=== PATIENT | female | born 1990 | race Caucasian/White ===

== ENCOUNTER 2018-11-24 09:36 | Emergency (ER) | payer SELFPAY ==
[~2018-11-24] VITALS: Ht 165.1 cm; Wt 89.8 kg
--- NOTE | 2018-11-24 09:43 | NUR ---
PT AMBULATES TO BED 4
[2018-11-24 09:45] VITALS: BP 111/79
--- NOTE | 2018-11-24 09:50 | NUR ---
28Y/F BIB SELF WITH EPIGASTRIC PAIN WITH N/V/D SINCE LAST NIGHT. PT STATES SHE MAY HAVE ATE SOMETHING BAD LAST NIGHT. PT IS AAOX4, VSS, BED DOWN, BEDRAIL UP X 1, ER MD AWARE AND NOTIFIED OF PT STATUS. DENIES HX:, DENIES MEDS
--- NOTE | 2018-11-24 10:03 | NUR ---
Patient being evaluated by physician at bedside.
[2018-11-24] MEDS ORDERED: NACL 0.9% 1,000 ML IV ONE (10:08)
--- NOTE | 2018-11-24 10:08 | NUR ---
ULTRASOUND AT BEDSIDE
[2018-11-24] MEDS ORDERED: MORPHINE SULFATE 4 MG/ML SYR IVP ONE (10:10)
[2018-11-24] MEDS ORDERED: DICYCLOMINE HCL LIQUID 20 MG, ALUMINUM HYD/MAG/SIMETHICONE 30 ML, LIDOCAINE VISCOUS 2% ... PO ONE ×3 (10:10)
[2018-11-24] MEDS ORDERED: ONDANSETRON 4 MG/2 ML VIAL IVP ONE (10:10)
--- NOTE | 2018-11-24 10:20 | NUR ---
LAB AT BEDSIDE
[2018-11-24 10:28] LABS: BASOPHILS % (AUTO) 0.5 % (0.0-2.0); EOSINOPHILS % (AUTO) 0.4 % (0.0-4.0); HEMATOCRIT 38.1 % (36-48); HEMOGLOBIN 12.9 g/dL (12.0-16.0); LYMPHOCYTES # (AUTO) 1.2 K/uL (2.5-16.5); LYMPHOCYTES % (AUTO) 16.1 % (20.5-51.1); MEAN CORPUSCULAR HEMOGLOBIN 28 pg (27-31); MEAN CORPUSCULAR HGB CONC 34 g/dL (33-37); MEAN CORPUSCULAR VOLUME 81.4 fL (80-94); MONOCYTES # (AUTO) 0.4 K/uL (0.8-1.0); MONOCYTES % (AUTO) 5.4 % (1.7-9.3); NEUTROPHILS % (AUTO) 77.6 % (42.2-75.2); PLATELET COUNT (AUTO) 355 K/uL (140-450); RED BLOOD CELL COUNT(AUTO) 4.69 MIL/uL (4.20-5.40); RED CELL DISTRIBUTION WIDTH 16.4 % (11.6-13.7); WHITE BLOOD COUNT (AUTO) 7.8 K/uL (4.8-10.8)
[2018-11-24 10:43] LABS: ALBUMIN 3.8 g/dL (3.4-5.0); ANION GAP 14.9 (8-16); CARBON DIOXIDE 22.2 mmol/L (21-32); CREATININE 0.8 mg/dL (0.6-1.3); POTASSIUM 4.1 mmol/L (3.5-5.1); TOTAL BILIRUBIN 0.4 mg/dL (0.0-1.0)
[2018-11-24 10:44] LABS: APPEARANCE,URINE CLEAR (CLEAR); BILIRUBIN,URINE NEGATIVE (NEGATIVE); BLOOD, URINE NEGATIVE (NEGATIVE); COLOR,URINE YELLOW (YELLOW); LEUKOCYTE ESTERASE ,URINE TRACE (NEGATIVE); NITRITE, URINE NEGATIVE (NEGATIVE); PH,URINE 6.5 (5.0-9.0); UGLUCOSE NEGATIVE (NEGATIVE)
[2018-11-24 10:59] LABS: RBC,URINE 0-5 /HPF (0-5)
[2018-11-24] MEDS ORDERED: KETOROLAC 30 MG/ML VIAL IVP ONE (11:30)
--- NOTE | 2018-11-24 11:30 | NUR ---
PT STATES SHE STILL HAS PAIN 04/05, TORADOL GIVEN
--- NOTE | 2018-11-24 11:59 | NUR ---
PT STATES PAIN LEVEL HAS GONE, PT IS FEELING BETTER
[2018-11-24 12:21] VITALS: BP 110/78
--- NOTE | 2018-11-24 12:21 | NUR ---
Patient discharged with v/s stable. Written and verbal after care instructions given and explained. Patient alert, oriented and verbalized understanding of instructions. Ambulatory with steady gait. All questions addressed prior to discharge. ID band removed. Patient advised to follow up with PMD. Rx of norco, naprosyn, omeprazole given. Patient educated on indication of medication including possible reaction and side effects. Opportunity to ask questions provided and answered.
== END 2018-11-24 12:21 | disposition home or self-care (01) ==
LOC: MED 09:36
DX: K80.20 Calculus of gallbladder without cholecystitis without obstruction (principal)
CPT/HCPCS: 36415; 76705; 80053; 81001; 83690; 85025; 87086; 96372; 96374; 96375; 99284; J1885; J2270; J2405; J7030; Q0092